=== PATIENT | male | born 1965 | race African-American/Black ===

== ENCOUNTER 2020-09-30 03:39 | Emergency (ER) | payer MEDICAID ==
[~2020-09-30] VITALS: Ht 175.3 cm; Wt 79.4 kg
[~2020-09-30 03:39] MED LIST: PARO20TA7
--- NOTE | 2020-09-30 03:51 | NUR ---
PT AAOX4. BIBSELF C/O HEADACHE AND HIGH BP. PT PLACED IN BED 10 ON PAVER LAYER AND PULSE OX. VSS.
[2020-09-30] MEDS ORDERED: CLONIDINE HCL 0.1 MG TABLET ONE (04:16)
[2020-09-30] MEDS ORDERED: CLONIDINE HCL 0.1 MG TABLET PO ONE (04:30)
--- NOTE | 2020-09-30 05:02 | NUR ---
PT RESTING COMFORTABLY. VSS.
[2020-09-30 05:52] VITALS: BP 157/111
--- NOTE | 2020-09-30 05:52 | NUR ---
Patient discharged to home in stable condition. Written and verbal after care instructions given. Patient verbalizes understanding of instruction. Pt stated he will visit his PMD today regarding his BP vss.
== END 2020-09-30 05:53 | disposition home or self-care (01) ==
LOC: ER 03:40
DX: I10 Essential (primary) hypertension (principal); R51.9 Headache, unspecified; F32.9 Major depressive disorder, single episode, unspecified; F10.10 Alcohol abuse, uncomplicated; F17.200 Nicotine dependence, unspecified, uncomplicated; Y90.9 Presence of alcohol in blood, level not specified; Z79.899 Other long term (current) drug therapy

== ENCOUNTER 2025-06-01 05:51 | Emergency (ER) | payer MEDICAID | END 2025-06-01 07:06 | disposition left against medical advice (07) | LOC: ER 05:53 | DX: Z53.21 Procedure and treatment not carried out due to patient leaving prior to being seen by health care provider (principal) ==